=== PATIENT | female | born 2000 | race African-American/Black ===

== ENCOUNTER 2020-03-03 15:38 | Emergency (ER) | payer SELFPAY ==
[~2020-03-03] VITALS: Ht 157.5 cm; Wt 52.0 kg
--- NOTE | 2020-03-03 16:38 | PHYS DOC ---
Past History Past Medical History: No Pertinent History (SINAI ZARCO DO) Past Surgical History: No Surgical History (SINAI ZARCO DO) Alcohol Use: None (SINAI ZARCO DO) General Adult EDM: Chief Complaint: COUGH HPI: HPI: Patient is a 19-year-old female who presented to ER today for evaluation of right-sided flank pain associate with some dry nonproductive cough for a few days. Patient denies any fever. Patient denies any nausea vomiting. Patient denies any pelvic pain, no vaginal discharge or bleeding. Patient says she has not been exposed to anybody who tested positive for COVID-19. (SINAI ZARCO DO) Review of Systems: Review of Systems: Constitutional: Denies fever or chills Eyes: Denies change in visual acuity HENT: Denies nasal congestion or sore throat Respiratory: Positive for nonproductive cough, no trouble breathing. Cardiovascular: Denies chest pain or edema GI: Positive for right side abdominal pain, no nausea or vomiting, no diarrhea. : Denies dysuria Musculoskeletal: Denies back pain or joint pain Integument: Denies rash Neurologic: Denies headache, focal weakness or sensory changes Endocrine: Denies polyuria or polydipsia Lymphatic: Denies swollen glands Psychiatric: Denies depression or anxiety (SINAI ZARCO DO) Heart Score: Risk Factors: Risk Factors: DM, Current or recent (<one month) smoker, HTN, HLP, family history of CAD, obesity. Risk Scores: Score 0 - 3: 2.5% MACE over next 6 weeks - Discharge Home Score 4 - 6: 20.3% MACE over next 6 weeks - Admit for Clinical Observation Score 7 - 10: 72.7% MACE over next 6 weeks - Early Invasive Strategies (SINAI ZARCO DO) Allergies: Allergies: Allergies Coded Allergies Type Severity Reaction Last Updated Verified No Known Drug Allergies 03/03/20 No (SINAI ZARCO DO) Physical Exam: PE: Constitutional: Well developed, well nourished, no acute distress, non-toxic appearance. [] HENT: Normocephalic, atraumatic, bilateral external ears normal, oropharynx moist, no oral exudates, nose normal. [] Eyes: PERRLA, EOMI, conjunctiva normal, no discharge. [] Neck: Normal range of motion, no tenderness, supple, no stridor. [] Cardiovascular:Heart rate regular rhythm, no murmur [] Lungs & Thorax: Bilateral breath sounds clear to auscultation [] Abdomen: Bowel sounds normal, soft, there is tenderness to palpation on right fl ank, no rebound, no guarding, no masses, no pulsatile masses. [] Skin: Warm, dry, no erythema, no rash. [] Back: No tenderness, there is right CVA tenderness. [] Extremities: No tenderness, no cyanosis, no clubbing, ROM intact, no edema. [] Neurologic: Alert and oriented X 3, normal motor function, normal sensory function, no focal deficits noted. [] Psychologic: Affect normal, judgement normal, mood normal. [] (SINAI ZARCO DO) Current Patient Data: Vital Signs: Vital Signs Date Time Temp Pulse Resp B/P (MAP) Pulse Ox O2 Delivery O2 Flow Rate FiO2 03/03/20 15:54 98.2 100 18 117/71 (86) 100 Room Air (SINAI ZARCO DO) EKG: EKG: [] (SINAI ZARCO DO) Radiology/Procedures: Radiology/Procedures: [][address] [address] IMAGING REPORT Signed PATIENT: JUANA DOTYCOUNT: [id number] : 2000 LOCATION: ER AGE: 19 SEX: F EXAM STATUS: REG ER ORD. PHYSICIAN: SINAI ZARCO DO REASON: COUGH, NON PRODUCTIVE PROCEDURE: CHEST AP ONLY EXAM: Chest, single view. HISTORY: Cough. COMPARISON: None. FINDINGS: A frontal view of the chest is obtained. There is no infiltrate, pleural effusion or pneumothorax. The heart is normal in size. IMPRESSION: No acute pulmonary finding. Electronically signed by: Julissa Ramirez MD (03/03/2020 4:36 PM) [facility] DICTATED AND SIGNED BY: JULISSA RAMIREZ MD DATE: 03/03/20 0576 CC: PCP,NO; SINAI ZARCO DO ~ (SINAI ZARCO DO) Radiology/Procedures: [address] [place], [place] [id number] IMAGING REPORT Signed PATIENT: JUANA DOTYCOUNT: [id number] : 2000 LOCATION: ER AGE: 19 SEX: F EXAM STATUS: REG ER ORD. PHYSICIAN: SINAI ZARCO DO REASON: RIGHT FLANK PAIN PROCEDURE: CT ABDOMEN PELVIS WO CONTRAST CT ABDOMEN PELVIS WO CONTRAST History: Right flank pain. Technique: Noncontrast examination of the abdomen and pelvis. Coronal and sagittal reconstructions were performed. Exposure: One or more of the following individualized dose reduction techniques were utilized for this examination: 1. Automated exposure control 2. Adjustment of the mA and/or kV according to patient size 3. Use of iterative reconstruction technique. Comparison: None Findings: Evaluation degraded with lack of mesenteric fat and noncontrast examination. Lower chest: No consolidation or pleural effusion. Abdomen and pelvis: The liver, spleen, adrenal glands, and pancreas are unremarkable. Possible sludge within the gallbladder. No gallbladder wall thickening. No biliary ductal dilatation. No hydronephrosis. No renal, ureteral or urinary bladder calculi. Decompressed urinary bladder with adjacent inflammatory changes. Small free fluid within the pelvis. Normal appendix. No evidence of bowel obstruction. No pathologic lymphadenopathy. Air within the lower endometrial canal at the level of the cervix. Bones: No pathologic osseous lesions. Impression: 1. Decompressed urinary bladder with adjacent inflammatory changes. Recommend correlation for cystitis. 2. Small pelvic free fluid. 3. Possible sludge within the lumen of the gallbladder. Ultrasound can further evaluate if clinically indicated. 4. Air within the lower endometrial and cervical canal. Clinical correlation for recent". Electronically signed by: Magno Palmer DO (03/03/2020 6:00 PM) [facility] DICTATED AND SIGNED BY: MAGNO PALMER DO DATE: 03/03/20 1800 CC: PCP,NO; SINAI ZARCO DO ~ (YOMI ROSARIO MD) Course & Med Decision Making: Course & Med Decision Making Pertinent Labs and Imaging studies reviewed. (See chart for details) [] (SINAI ZARCO DO) Course & Med Decision Making Pt. is on a clear fluid diet only for the 2 days. No solids or milk products. Must allow bowel rest. Tylenol and ibuprofen for discomfort. Patient follow-up with primary care. Patient consider follow-up with surgery for possible biliary colic. Patient return if any concerns. Patient remain on a fat-free diet. Impression: 1. Cough 2. Abdomen pain 3. Biliary Colic- Sludge 4. Viral Syndrome (YOMI ROSARIO MD) Ruby Disclaimer: Ruby Disclaimer: This electronic medical record was generated, in whole or in part, using a voice recognition dictation system. (SINAI ZARCO DO) Departure Departure: Disposition: HOME/RESIDENCE PRIOR TO ADM Condition: STABLE Referrals: PCP,NO (PCP) Ruby Disclaimer This chart was dictated in whole or in part using Voice Recognition software in a busy, high-work load, and often noisy Emergency Department environment. It may contain unintended and wholly unrecognized errors or omissions. (YOMI ROSARIO MD) SINAI ZARCO DO March 03, 2020 16:38 YOMI ROSARIO MD March 03, 2020 18:34
[2020-03-03 16:55] LABS: BASO % 1 % (0-3); EOS # 0.2 x10^3/uL (0.0-0.7); EOS % 2 % (0-3); HEMATOCRIT 41.5 % (36.0-47.0); HEMOGLOBIN 13.8 g/dL (12.0-15.5); LYMPH # 0.9 x10^3/uL (1.0-4.8); LYMPH % 12 % (24-48); MEAN CORPUSCULAR HEMOGLOBIN 32 pg (25-35); MEAN CORPUSCULAR HGB CONC 33 g/dL (31-37); MEAN CORPUSCULAR VOLUME 96 fL (79-100); MONO # 0.6 x10^3/uL (0.0-1.1); MONO % 8 % (0-9); NEUT # 5.8 x10^3uL (1.8-7.7); NEUT % 77 % (31-73); PLATELET COUNT 170 x10^3/uL (140-400); RED BLOOD COUNT 4.32 x10^6/uL (3.50-5.40); RED CELL DISTRIBUTION WIDTH 12.9 % (11.5-14.5); WHITE BLOOD COUNT 7.6 x10^3/uL (4.0-11.0)
[2020-03-03 17:04] LABS: CALCIUM 8.8 mg/dL (8.5-10.1); CREATININE 0.7 mg/dL (0.6-1.0); GFR 130.4; POTASSIUM 3.5 mmol/L (3.5-5.1)
[2020-03-03 17:08] LABS: PREG TEST PT QUAL NEGATIVE (NEG)
[2020-03-03 17:10] LABS: ALBUMIN 3.9 g/dL (3.4-5.0); ALBUMIN/GLOBULIN RATIO 1.1 (1.0-1.7); TOTAL PROTEIN 7.3 g/dL (6.4-8.2)
[2020-03-03 17:42] LABS: BACTERIA,URINE 0 /HPF (0-FEW); BILIRUBIN,URINE NEG (NEG); CLARITY,URINE HAZY; COLOR,URINE YELLOW; GLUCOSE,URINE NEG (NEG); NITRITE,URINE NEG (NEG); SQUAMOUS EPITHELIAL CELL,UR MANY /LPF; UROBILINOGEN,URINE 0.2 mg/dL (0.2 mg/dL)
--- NOTE | 2020-03-03 18:03 | RAD ---
CT ABDOMEN PELVIS WO CONTRAST History: Right flank pain. Technique: Noncontrast examination of the abdomen and pelvis. Coronal and sagittal reconstructions were performed. Exposure: One or more of the following individualized dose reduction techniques were utilized for this examination: 1. Automated exposure control 2. Adjustment of the mA and/or kV according to patient size 3. Use of iterative reconstruction technique. Comparison: None Findings: Evaluation degraded with lack of mesenteric fat and noncontrast examination. Lower chest: No consolidation or pleural effusion. Abdomen and pelvis: The liver, spleen, adrenal glands, and pancreas are unremarkable. Possible sludge within the gallbladder. No gallbladder wall thickening. No biliary ductal dilatation. No hydronephrosis. No renal, ureteral or urinary bladder calculi. Decompressed urinary bladder with adjacent inflammatory changes. Small free fluid within the pelvis. Normal appendix. No evidence of bowel obstruction. No pathologic lymphadenopathy. Air within the lower endometrial canal at the level of the cervix. Bones: No pathologic osseous lesions. Impression: 1. Decompressed urinary bladder with adjacent inflammatory changes. Recommend correlation for cystitis. 2. Small pelvic free fluid. 3. Possible sludge within the lumen of the gallbladder. Ultrasound can further evaluate if clinically indicated. 4. Air within the lower endometrial and cervical canal. Clinical correlation for recent". Electronically signed by: Magno Palmer DO (03/03/2020 6:00 PM) [facility]
[2020-03-03 18:40] VITALS: BP 116/70
== END 2020-03-03 18:48 | disposition home or self-care (01) ==
LOC: ER 15:38
DX: K80.50 Calculus of bile duct without cholangitis or cholecystitis without obstruction (principal); B34.9 Viral infection, unspecified
CPT/HCPCS: 36415; 71045; 74176; 80053; 81001; 83690; 84703; 85025; 87086; 99285

== ENCOUNTER 2020-12-25 01:16 | Emergency (ER) | payer SELFPAY ==
--- NOTE | 2020-12-25 01:29 | PHYS DOC ---
Past History Past Medical History: No Pertinent History Past Surgical History: No Surgical History Alcohol Use: None Adult General HPI HPI Patient is an otherwise healthy 19-year-old female who presents with a burn to the medial side of her left second digit/20 finger. States she was cooking and got some hot sugar on it. Denies any other injuries. States she is not up-to-date on her tetanus vaccinations but does not want a tetanus shot here today. Review of Systems Review of Systems Review of systems otherwise unremarkable except noted in HPI Allergies Allergies Allergies Coded Allergies Type Severity Reaction Last Updated Verified No Known Drug Allergies 03/03/20 No Physical Exam Physical Exam Constitutional: Well developed, well nourished, no acute distress, non-toxic appearance. [] Skin: Warm, dry, no erythema, no rash. [] Extremities: Patient has mild erythema on the lateral portion of the distal second digit with no blistering. Suggestive of first-degree burn. Probably 1/10 of 1% of total body surface area. Neurologic: Alert and oriented X 3, normal motor function, normal sensory function, no focal deficits noted. [] Psychologic: Affect normal, judgement normal, mood normal. [] EKG EKG [] Radiology/Procedures Radiology/Procedures [] Heart Score Risk Factors: Risk Factors: DM, Current or recent (<one month) smoker, HTN, HLP, family history of CAD, obesity. Risk Scores: Risk Factors: DM, Current or recent (<one month) smoker, HTN, HLP, family history of CAD, obesity. Course & Med Decision Making Course & Med Decision Making Patient is a 19-year-old female who presents with a burn to the tip of her finger Vital signs not concerning. Physical exam noted above. Probable mild tiny first-degree burn. Given instructions on wound management at home. Cleaned while in the ED. Gave topical antibiotic ointment and bandages. Advised to follow-up with primary care physician. Gave return precautions to the ED. Patient politely declined tetanus vaccination update. Patient grateful, verbalized understanding and agreed with plan of discharge. [] Dragon Disclaimer Dragon Disclaimer This electronic medical record was generated, in whole or in part, using a voice recognition dictation system. Departure Departure: Impression: Primary Impression: Burn Disposition: 01 DC HOME SELF CARE/HOMELESS Condition: GOOD Referrals: PCP,NO (PCP) Patient Instructions: Burn Care, [id number] Additional Instructions: Please read all your attached information. These keep the area clean and dry. Please keep it bandaged. Follow-up with your primary care as needed. Please discuss your tetanus update with your primary care physician since you declined it here. You can return to the ED with new or concerning symptoms. URIEL LEON MD Dec 25, 2020 01:29
[2020-12-25] MEDS ORDERED: NEOMY/BACITR/POLYMYXIN OINT PACKET. TP ONE ×2 (01:30→04:00)
== END 2020-12-25 01:35 | disposition home or self-care (01) ==
LOC: ER 01:16
DX: T23.122A Burn of first degree of single left finger (nail) except thumb, initial encounter (principal); X08.8XXA Exposure to other specified smoke, fire and flames, initial encounter; Y93.89 Activity, other specified; Y92.89 Other specified places as the place of occurrence of the external cause; Y99.8 Other external cause status
CPT/HCPCS: 99281